=== PATIENT | female | born 1980 | race Caucasian/White ===

== ENCOUNTER 2020-12-28 19:52 | Emergency (ER) | payer MEDICAID, SELFPAY ==
[2020-12-28 19:57] VITALS: BP 163/97; PULSE 89; RESP 18; TEMP 36.3; O2SAT 98
--- NOTE | 2020-12-28 20:05 | ED.GENADUL_ITS ---
Discharge Plan Disposition Patient Disposition: HOME Condition: Stable Discharge Details Clinical Impression: Pyelonephritis Primary Care Provider: Hyun Kang ED Provider: Alpesh Márquez Home Meds and New Rx's Prescriptions: New levofloxacin 750 mg tablet 750 mg PO DAILY Qty: 5 RF: 0 Continued Ox Bile 1 tab PO .WITH MEALS PRNRF: 0 Discharge Instructions Instructions: Urinary Tract Infection in Women (ED) Additional Instructions: you can take 1000mg tylenol and 600mg ibuprofen every 6 hours for pain as needed if symptoms continue next week follow up with your primary care provider if you feel more ill, have severe worsening symptoms or difficulty breathing return to the emergency department Medical Decision Making 40 yo female with no chronic medical problems comes in with chief complaint of burning with urination for a week and frequency and the past two days has had bilateral pain in the cva area of her back. States she had a fever to 100.7 yesterday. No abdominal pain, n/v, chest pain, dyspnea. She is in no distress on exam, has no abdominal tenderness, does have bilateral cva tenderness, appears well systemically. Suspect uti vs pyelo, will obtain ua and reassess. She is wells low and perc negative so doubt her cva area pain is due to PE microscopic does have significant bacteria in it, can't do culture due to squam contamination so repeat culture ordered. She remains stable, still no abdominal tenderness. She is stable for d/c, will start levofloxacin for pyelo and advised to f/u with pcp, return precautions given Differential Diagnosis Differential Diagnosis: pyelo, uti, kidney stone Lab Data Lab results reviewed: Yes I reviewed the patient's lab results. HPI General Mode of arrival: ambulatory . Date/Time Provider Initiated Documentation: 12/28/20 19:56 . Limitations to Documentation: no limitations . Information obtained by: patient . History of Present Illness 40 year old F presents to the emergency department with the chief complaint of uti, described as moderate, Quality is described as aching, Patient started experiencing this week(s) (1) and it has been constant. No relieving factors improve symptom(s), No exacerbating factors reported . Patient did receive the following treatments prior to arrival, none Related Data Home Medications Medication Instructions Recorded Confirmed Ox Bile 1 tab PO .WITH MEALS PRN 12/02/16 12/28/20 levofloxacin 750 mg PO DAILY #5 tab 12/28/20 Previous Rx's Medication Instructions Recorded levofloxacin 750 mg PO DAILY #5 tab 12/28/20 Allergies Allergy/AdvReac Type Severity Reaction Status Date / Time gluten Allergy Severe Unverified 12/28/20 20:03 lactase [From Dairy Aid] Allergy Severe Unverified 12/28/20 20:03 General Stated Complaint: Urinary JORGE: 3 Review of Systems All systems reviewed & are unremarkable except as noted in HPI and below Constitutional Constitutional: Denies chills, Denies fever(s) and Denies weakness Cardiovascular Cardiovascular: Denies chest pain and Denies dyspnea Respiratory Respiratory: Denies cough and Denies dyspnea Gastrointestinal Gastrointestinal: Denies abdominal pain, Denies nausea and Denies vomiting Musculoskeletal Musculoskeletal: Denies joint swelling Neurologic Neurologic: Denies weakness Psychiatric Psychiatric: Denies depression PFSH Social History Smoking/Tobacco Use Status: Never Smoking risk assessment performed?: Yes Alcohol Intake: current Alcohol Intake frequency: holidays/special occasions only Drug use: Never Substance use type: does not use Do you feel safe at home: Yes Do you feel safe in your relationship?: Yes Exam Const General: no acute distress Orientation: alert HENMT Head: normal to inspection Ears: external ears normal General nose exam: external nose normal Mouth: moist mucous membranes Eyes General: appearance normal, both eyes and all related structures Neck Neck: normal visual inspection Resp Effort & Inspection: normal respiratory effort and able to speak in complete sentences Cardio Rate: regular rate GI Palpation: soft and nontender General: CVA tenderness Skin General skin exam: no rashes or lesions noted Neuro General: patient alert and patient oriented x3 Extrem General: normal to inspection Psych Mental Status: mental status grossly normal Course Vital Signs Vital signs: Vital Signs Temperature 36.3 C L 12/28/20 19:57 Pulse 89 12/28/20 19:57 Respiratory Rate 18 12/28/20 19:57 Blood Pressure 163/97 H 12/28/20 19:57 Pulse Oximetry 98 12/28/20 19:57 Temperature 36.3 C L 12/28/20 19:57 Temperature Source Temporal Artery Scan 12/28/20 19:57 Pulse 89 12/28/20 19:57 Respiratory Rate 18 12/28/20 19:57 Blood Pressure 163/97 H 12/28/20 19:57 Blood Pressure Position Sitting 12/28/20 19:57 Pulse Oximetry 98 12/28/20 19:57 Oxygen Delivery Method Room Air 12/28/20 19:57 Oxygen Flow Rate 0 12/28/20 19:57 Pain Level 8 12/28/20 19:57 Lab/Test Results Lab/Test Results: 12/28/20 19:57 Urine - Clean Catch Urine Culture - Pending
[2020-12-28 20:30] LABS: Bilirubin Negative (Negative); Blood Trace-intact (Negative); Clarity Sl Cloudy (Clear); Glucose Negative (Negative); Ketones Negative (Negative); Leukocyte Esterase Negative (Negative); Nitrite Negative (Negative); Specific Gravity 1.025 (1.005-1.025); Urobilinogen 0.2 EU/dL (Up TO 0.2)
[2020-12-28 20:38] LABS: Bacteria Moderate HPF (Negative); C & S Indicated? No/Sq. Contamination; Casts Negative LPF (Negative); Crystals Negative HPF (Negative); Epithelial Cells Many HPF (Negative); Mucus Negative (Negative); RBC Negative HPF (0-2)
[2020-12-28] MEDS: levoFLOXacin 500 MG, levoFLOXacin 250 MG 750 MG PO (20:50)
[2020-12-28] MEDS: Ketorolac 15 MG/ML VIAL IM (20:50)
== END 2020-12-28 20:49 | disposition home or self-care (01) ==
PROVIDERS: Emergency Provider Emergency Medicine; PCP Family Medicine
DX: N10 Acute pyelonephritis (principal); R50.9 Fever, unspecified; M54.59 Other low back pain
CPT/HCPCS: 81025; 96372; 99284; 81003; 81015; 87086; J1885

== ENCOUNTER 2022-03-19 15:54 | Emergency (ER) | payer MEDICAID, SELFPAY ==
--- NOTE | 2022-03-19 16:00 | RT.EKG_ITS ---
APPROVED REPORT Exam: Resting ECG Reason for Exam: CHEST PAIN Patient Location: E HR:70 bpm ECG Measurements Heart Rate 70 AXIS FL 128 P 39 QRSd 97 QRS 43 QT 378 T 49 QTc 409 Conclusion Sinus rhythm...normal P axis, V-rate 60- 99
[2022-03-19 16:03] VITALS: BP 143/80; PULSE 72; RESP 18; TEMP 37.3; O2SAT 99
--- NOTE | 2022-03-19 16:30 | DI.CT_ITS ---
Exam(s) CT HEAD WO EXAM: CT HEAD WO CLINICAL HISTORY: Transient L arm weak. TECHNIQUE: Imaging Protocol: Axial computed tomography images with coronal and sagittal reformatted images were created and reviewed COMPARISON: No exams were available for comparison FINDINGS: There are no skull fractures. There is no fluid in the visualized paranasal sinuses. There is no evidence of intracranial hemorrhage, mass effect, or shift of midline structures. There are no extra-axial fluid collections. The ventricles are not enlarged or shifted and there is no blo od within the ventricular system nor within the basal cisterns. IMPRESSION: No acute intracranial findings on this noninfused CT scan of the brain. If clinically indicated follow-up MRI can be performed. RADIATION DOSE DELIVERED: 809.35mGy.cm Total DLP DATA REPOSITORY: All CT scans at this facility are submitted to the National Radiology Data Registry (NRDR) Dose Index Registry (DIR) with the [employer] ([employer]). RADIATION OPTIMIZATION: All CT scans at this facility use at least one of these dose optimization te chniques: automated exposure control; mA and/or kV adjustment per patient size (includes targeted exa ms where dose is matched to clinical indication); or iterative reconstruction.
--- NOTE | 2022-03-19 16:30 | DI.RAD_ITS ---
Exam(s) XR CHEST 2V PA LATERAL EXAM: XR CHEST 2V PA LATERAL CLINICAL HISTORY: L arm tightness. TECHNIQUE: 2D digital imaging was performed. COMPARISON: CR ABD FLAT UPRIGHT PA CHEST from 03/13/2013 FINDINGS: 2 views: Heart size is normal. The mediastinum is not widened. Lungs are clear. No infiltrates nor pleural effusions. IMPRESSION: No acute pulmonary findings. DATA REPOSITORY: RADIATION DOSE DELIVERED:
--- NOTE | 2022-03-19 17:12 | ED.GENADUL_ITS ---
Discharge Plan Disposition Patient Disposition: Home Condition: Improving Discharge Details Clinical Impression: Acute reaction to stress, Atypical chest pain Primary Care Provider: Hyun Kang ED Provider: Anders Payne Home Meds and New Rx's Prescriptions: No Action Ox Bile 1 tab PO .WITH MEALS PRN levofloxacin 750 mg tablet 750 mg PO DAILY Qty: 5 0RF Discharge Instructions Instructions: Chest Pain (ED) Additional Instructions: Your work-up in the emergency department today, included CAT scan of the head, chest x-ray, EKG, laboratories including cardiac troponin. Our care managers will arrange a follow-up for you in primary care clinic for recheck. Return if you develop new clumsiness of the hand, difficulty with speech or gait, or any other acute concerns. (System evening. Please begin 20 minutes of daily continuous dressing time including gentle stretching, walking, listening to music, or other calming activities. Medical Decision Making 42-year-old female presents with Complaints. She has intermittent chest discomfort and GERD symptoms over weeks time. She has increased anxiety regarding stressors in her life. Today she had report of transient left arm sensation of feeling tight after eating lunch. Lasted approximately 2 hours and resolved limits. There is no clumsiness, no weakness, no numbness. She did not have difficulty with gait or speech. She will note she questions some of the symptoms began after using what she describes as a frequency stimulation device that is electronic designed to help her relax. She presents well-appearing. Differential diagnosis is broad but her consider acute stress, must exclude atypical ACS, URI. Will obtain thyroid studies, general screening laboratories. Her neurologic exam is unremarkable. Vital signs are reassuring with note of blood pressure 143/80. Patient referred for CT scan of the head, EKG, chest x-ray and laboratory studies. CT scan of the head and chest x-ray are unremarkable. Laboratories: Reassuring CBC, unremarkable electrolytes, noted BUN 36, creatinine 0.9. Normal troponin, D-dimer is negative. Noted TSH 4.3. Patient reassured. We will arrange follow-up for her. I do feel she may have a significant amount of stress causing some of her symptoms. She will avoid further use of anxious electric frequency device at home. She is stable and improving Lab Data Lab results reviewed: Yes I reviewed the patient's lab results. Labs: Laboratory Tests Range/Units 03/19/22 03/19/22 03/19/22 17:36 17:36 17:36 WBC (4.4-10.8) 10^3/uL 10.72 RBC (3.93-5.22) 10^6/uL 4.78 Hgb (11.2-15.7) g/dL 14.5 Hct (36.0-46.0) % 43.9 MCV (80-95) fL 92 MCH (27.0-33.0) pg 30.3 MCHC (32.0-36.0) % 33.0 RDW (11.7-14.6) % 13.0 Plt Count (130-400) 10^3/uL 235 MPV (8.0-11.0) fL 10.6 Immature Gran % 0.6 Neutrophils % 63.5 Lymphocytes % 29.1 Monocytes % 5.3 Eosinophils % 0.9 Basophils % 0.6 Nucleated RBC % (0.0-0.3) % 0.0 Absolute Neutrophils (1.2-6.7) 10^3/uL 6.81 H Absolute Lymphocytes (1.2-3.4) 10^3/uL 3.12 Absolute Monocytes (0.1-0.8) 10^3/uL 0.57 Absolute Eosinophils (0.0-0.7) 10^3/uL 0.10 Absolute Basophils (0.0-0.2) 10^3/uL 0.06 D-Dimer (<500) ng/mlFEU 157 Sodium (136-145) mmol/L 138 Potassium (3.5-5.1) mmol/L 3.6 Chloride (98-107) mmol/L 102 Carbon Dioxide (21.0-32.0) mmol/L 27.0 Anion Gap (3-11) mmol/L 9.0 BUN (7-18) mg/dL 36 H Creatinine (0.55-1.02) mg/dL 0.9 Est GFR (CKD-EPI 2020) (mL/min/1.73m2) 80.84 Glucose (74-106) mg/dL 92 Calcium (8.5-10.1) mg/dL 9.9 Magnesium (1.8-2.4) mg/dL 2.1 Total Bilirubin (0.2-1.0) mg/dL 0.2 AST (15-37) U/L 12 L ALT (14-59) U/L 18 Alkaline Phosphatase (46-116) U/L 117 H Troponin I (<or=60) ng/L < 50 Total Protein (6.4-8.2) g/dL 8.2 Albumin (3.4-5.0) g/dL 4.5 TSH (0.36-3.74) uIU/mL 4.31 H HPI General Mode of arrival: ambulatory . Date/Time Provider Initiated Documentation: 03/19/22 16:17 . Limitations to Documentation: no limitations . Information obtained by: patient . History of Present Illness 42 year old F presents to the emergency department with the chief complaint of Intermittent chest discomfort over the weeks time, left arm tightness, described as moderate, and is localized to the chest, left and upper extremity. Patient reports no radiation. and it has been intermittent. No relieving factors improve symptom(s), No exacerbating factors reported . Patient notes cough and other (Loose stool, mild malaise); denies fever/chills, rash and shortness of breath. Patient did receive the following treatments prior to arrival, none Related Data Home Medications Medication Instructions Recorded Confirmed Ox Bile 1 tab PO .WITH MEALS PRN 12/02/16 12/28/20 levofloxacin 750 mg tablet 750 mg PO DAILY #5 tabs 12/28/20 Previous Rx's Medication Instructions Recorded levofloxacin 750 mg tablet 750 mg PO DAILY #5 tabs 12/28/20 Allergies Allergy/AdvReac Type Severity Reaction Status Date / Time gluten Allergy Severe Unverified 12/28/20 20:03 lactase [From Dairy Aid] Allergy Severe Unverified 12/28/20 20:03 General Stated Complaint: Chest Pain JORGE: 3 Review of Systems Narrative: 6 systems reviewed and otherwise negative PFSH All Active Problems (Updated 03/19/22 @ 18:35 by Anders Payne MD) Pyelonephritis (Acute) Acute reaction to stress (Acute) Atypical chest pain (Acute) Social History Smoking/Tobacco Use Status: Never Smoking risk assessment performed?: Yes Alcohol Intake: current Alcohol Intake frequency: holidays/special occasions only Drug use: Never Substance use type: does not use Do you feel safe at home: Yes Do you feel safe in your relationship?: Yes Exam Narrative Exam Narrative: GEN: awake, alert, oriented 3. Pleasant, well groomed, interactive. HEAD: Normocephalic, atraumatic ENT: Mucous membranes moist, oropharynx unremarkable, External ear exam unremarkable EYES: PERRL, EOMI NECK: Full ROM, no LASHELL, no menigismus CHEST/RESP: Nontender, clear to auscultation bilateral, no wheeze/rhonchi/rales CARDIOVASCULAR: RRR, no murmur, rub ryann. 2+ Rad pulse bilateral ABDOMEN: Soft, nontender, no mass. +Bowel sounds EXT: Full ROM, no edema, no rash Neuro: Grossly normal neurologic exam, conversant, interactive. Cranial nerves II through XII intact, sensation intact throughout including sensation of the upper extremities. Normal motor throughout including normal motor function of the radial, median, ulnar nerves. Finger-nose intact. Romberg is negative Psych: Speech fluent, thoughts congruent, affect normal Course Vital Signs Vital signs: Vital Signs Temperature 37.3 C 03/19/22 16:03 Pulse 72 03/19/22 16:03 Respiratory Rate 18 03/19/22 16:03 Blood Pressure 143/80 H 03/19/22 16:03 Pulse Oximetry 99 03/19/22 16:03 Temperature 37.3 C 03/19/22 16:03 Temperature Source Skin 03/19/22 16:03 Pulse 72 03/19/22 16:03 Respiratory Rate 18 03/19/22 16:03 Respiratory Effort 03/19/22 16:14 Blood Pressure 143/80 H 03/19/22 16:03 Blood Pressure Position Sitting 03/19/22 16:03 Pulse Oximetry 99 03/19/22 16:03 Oxygen Delivery Method Room Air 03/19/22 16:03 Oxygen Flow Rate 0 03/19/22 16:03 Pain Level 4 03/19/22 16:03
--- NOTE | 2022-03-19 17:39 | DI.VRAD_ITS ---
PROCEDURE INFORMATION: Exam: CT Head Without Contrast Exam date and time: 03/19/2022 5:15 PM Age: 42 years old Clinical indication: Other: Transient L arm weak TECHNIQUE: Imaging protocol: Computed tomography of the head without contrast. COMPARISON: No relevant prior studies available. FINDINGS: Brain: Normal. No hemorrhage. Unremarkable white matter. No mass effect. Cerebral ventricles: No ventriculomegaly. Paranasal sinuses: Visualized sinuses are unremarkable. No fluid levels. Mastoid air cells: Visualized mastoid air cells are well aerated. Bones/joints: Unremarkable. No acute fracture. Soft tissues: Unremarkable. IMPRESSION: No acute intracranial abnormality. Dictated and Authenticated by: Nitesh Marks MD. Ordering:PADDY Mcnamara MD
--- NOTE | 2022-03-19 17:39 | DI.VRAD_ITS ---
PROCEDURE INFORMATION: Exam: XR Chest Exam date and time: 03/19/2022 5:19 PM Age: 42 years old Clinical indication: Other: Transient L arm weak TECHNIQUE: Imaging protocol: Radiologic exam of the chest. Views: 2 views. COMPARISON: No relevant prior studies available. FINDINGS: Lungs: Unremarkable. No consolidation. Pleural spaces: Unremarkable. No pleural effusion. No pneumothorax. Heart/Mediastinum: Unremarkable. No cardiomegaly. Bones/joints: Unremarkable. IMPRESSION: No acute findings. Dictated and Authenticated by: Nitesh Marks MD. Ordering:PADDY Mcnamara MD
[2022-03-19 17:47] LABS: Abs Immature Grans 0.06 10^3/uL (0.0-0.06); Absolute Basophil Count 0.06 10^3/uL (0.0-0.2); Absolute Lymphocyte Count 3.12 10^3/uL (1.2-3.4); Absolute Monocyte Count 0.57 10^3/uL (0.1-0.8); Absolute Neutrophil Count 6.81 10^3/uL (1.2-6.7); Basophils % 0.6; Eosinophils % 0.9; HCT 43.9 % (36.0-46.0); HGB 14.5 g/dL (11.2-15.7); Immature Grans % 0.6; Lymphocytes % 29.1; MCH 30.3 pg (27.0-33.0); MCV 92 fL (80-95); MPV 10.6 fL (8.0-11.0); Monocytes % 5.3; Neutrophils % 63.5; Platelet Count 235 10^3/uL (130-400); RBC 4.78 10^6/uL (3.93-5.22); RDW-SD 43.8 fL; WBC 10.72 10^3/uL (4.4-10.8)
[2022-03-19 18:11] LABS: ALT 18 U/L (14-59); AST 12 U/L (15-37); Albumin 4.5 g/dL (3.4-5.0); Alkaline Phosphatase 117 U/L (46-116); BUN 36 mg/dL (7-18); Bilirubin, Total 0.2 mg/dL (0.2-1.0); CREATININE 0.9 mg/dL (0.55-1.02); Calcium 9.9 mg/dL (8.5-10.1); Chloride 102 mmol/L (98-107); Estimated GFR 80.84 (mL/min/1.73m2); Glucose 92 mg/dL (74-106); Magnesium 2.1 mg/dL (1.8-2.4); Potassium 3.6 mmol/L (3.5-5.1); Sodium 138 mmol/L (136-145); TSH 4.31 uIU/mL (0.36-3.74); Total Protein 8.2 g/dL (6.4-8.2); Troponin I < 50 ng/L (<or=60)
[2022-03-19 18:17] LABS: D-Dimer 157 ng/mlFEU (<500)
[2022-03-19 19:12] VITALS: RESP 20
== END 2022-03-19 18:47 | disposition home or self-care (01) ==
PROVIDERS: Emergency Provider Emergency Medicine; PCP Family Medicine
DX: F43.0 Acute stress reaction (principal); R07.89 Other chest pain; M79.602 Pain in left arm
CPT/HCPCS: 80053; 93005; 99284; 70450; 71046; 83735; 84443; 84484; 85025; 85379; 93010

== ENCOUNTER 2022-06-30 15:09 | Outpatient (REF) | payer MEDICAID, SELFPAY ==
[2022-06-30 15:42] LABS: ALT 22 U/L (14-59); AST 10 U/L (15-37); Albumin 4.1 g/dL (3.4-5.0); Alkaline Phosphatase 124 U/L (46-116); Anion Gap 7.4 mmol/L (3-11); BUN 13 mg/dL (7-18); Bilirubin, Total 0.3 mg/dL (0.2-1.0); CO2 28.6 mmol/L (21.0-32.0); CREATININE 0.9 mg/dL (0.55-1.02); Calcium 9.2 mg/dL (8.5-10.1); Calculated LDL 122 mg/dL (<100); Chloride 105 mmol/L (98-107); Cholesterol 214 mg/dL (<200); Estimated GFR 80.84 (mL/min/1.73m2); Glucose 93 mg/dL (74-106); HDL Cholesterol 39 mg/dL (40-60); Potassium 4.1 mmol/L (3.5-5.1); Sodium 141 mmol/L (136-145); TSH (W/Ref FT4) 2.33 uIU/mL (0.36-3.74); Total Protein 7.2 g/dL (6.4-8.2); Triglyceride 266 mg/dL (<150)
== END 2022-06-30 15:10 | disposition home or self-care (01) ==
LOC: NCHCN 15:09
PROVIDERS: PCP Family Medicine; Visit Provider Family Medicine
DX: E03.9 Hypothyroidism, unspecified (principal); R63.5 Abnormal weight gain
CPT/HCPCS: 80053; 80061; 84443

== ENCOUNTER 2023-06-08 09:29 | Outpatient (CLI) | payer MEDICAID, SELFPAY ==
[2023-06-08 16:07] LABS: Abs Immature Grans 0.03 10^3/uL (0.0-0.06); Absolute Basophil Count 0.04 10^3/uL (0.0-0.2); Absolute Eosinophil Count 0.08 10^3/uL (0.0-0.7); Absolute Lymphocyte Count 1.67 10^3/uL (1.2-3.4); Absolute Monocyte Count 0.64 10^3/uL (0.1-0.8); Absolute Neutrophil Count 3.61 10^3/uL (1.2-6.7); Basophils % 0.7; Eosinophils % 1.3; HCT 40.7 % (36.0-46.0); HGB 13.3 g/dL (11.2-15.7); Immature Grans % 0.5; Lymphocytes % 27.5; MCH 30.4 pg (27.0-33.0); MCHC 32.7 % (32.0-36.0); MCV 93 fL (80-95); MPV 10.4 fL (8.0-11.0); Monocytes % 10.5; Neutrophils % 59.5; Platelet Count 183 10^3/uL (130-400); RBC 4.37 10^6/uL (3.93-5.22); RDW 13.1 % (11.7-14.6); RDW-SD 45.1 fL; WBC 6.07 10^3/uL (4.4-10.8)
[2023-06-08 18:11] LABS: Vitamin D 25 Total 21.4 ng/mL (30-100)
[2023-06-08 18:12] LABS: ALT 24 U/L (14-59); AST 14 U/L (15-37); Albumin 3.8 g/dL (3.4-5.0); Alkaline Phosphatase 128 U/L (46-116); Anion Gap 10.7 mmol/L (3-11); BUN 15 mg/dL (7-18); Bilirubin, Total 0.3 mg/dL (0.2-1.0); CO2 25.3 mmol/L (21.0-32.0); CREATININE 0.9 mg/dL (0.55-1.02); Calcium 8.8 mg/dL (8.5-10.1); Calculated LDL 113 mg/dL (<100); Chloride 106 mmol/L (98-107); Cholesterol 189 mg/dL (<200); Estimated GFR 80.34 (mL/min/1.73m2); Glucose 93 mg/dL (74-106); HDL Cholesterol 32 mg/dL (40-60); Sodium 142 mmol/L (136-145); TSH (W/Ref FT4) 3.65 uIU/mL (0.36-3.74); Total Protein 6.8 g/dL (6.4-8.2); Triglyceride 223 mg/dL (<150); Vitamin B12 359 pg/mL (193-986)
== END 2023-06-08 09:30 | disposition home or self-care (01) ==
LOC: LBO 06-09 09:33
PROVIDERS: PCP Family Medicine; Visit Provider Nurse Practitioner Family
DX: E55.9 Vitamin D deficiency, unspecified (principal); D51.3 Other dietary vitamin B12 deficiency anemia; E03.9 Hypothyroidism, unspecified; E78.5 Hyperlipidemia, unspecified; Z00.00 Encounter for general adult medical examination without abnormal findings
CPT/HCPCS: 36415; 80053; 80061; 82306; 82607; 84443; 85025

== ENCOUNTER 2023-12-03 12:51 | Outpatient (CLI) | payer MEDICAID, SELFPAY ==
--- NOTE | 2023-12-03 | DI.RAD_ITS ---
Exam(s) XR CHEST 2V PA LATERAL EXAM: XR CHEST 2V PA LATERAL CLINICAL HISTORY: COUGH PRODUCTIVE, ? BRONCHITIS/PNEUMONIA. TECHNIQUE: 2D digital imaging was performed. COMPARISON: CR,XR XR CHEST 2V PA LATERAL from 03/19/2022 FINDINGS: 2 views: Heart size is normal. The mediastinum is not widened. Lungs are clear. No infiltrates nor pleural effusions. IMPRESSION: No acute pulmonary findings. DATA REPOSITORY: RADIATION DOSE DELIVERED:
== END 2023-12-03 13:11 ==
PROVIDERS: Visit Provider Nurse Practitioner Family
DX: R05.9 Cough, unspecified (principal)
CPT/HCPCS: 71046

== ENCOUNTER 2024-07-25 15:34 | Outpatient (CLI) | payer MEDICAID, SELFPAY ==
[2024-07-27 10:53] LABS: EBNA IgG Negative (Negative); EBV Interpretation (See Note); VCA IgG Positive (Negative); VCA IgM Negative (Negative)
== END 2024-07-25 15:35 | disposition home or self-care (01) ==
LOC: LBO 15:35
PROVIDERS: Visit Provider Physician Assistant
DX: J02.9 Acute pharyngitis, unspecified (principal)
CPT/HCPCS: 36415; 86664; 86665